=== PATIENT | male | born 1955 | race Caucasian/White ===

== ENCOUNTER 2017-04-27 10:04 | Emergency (ER) | payer OTHER ==
[~2017-04-27 10:04] MED LIST: ASPEC81 PO; ATOR-22 PO; CLOP1TAB5 PO; LEVO25TA PO; LOSA50TA6 PO
[2017-04-27 10:09] VITALS: TEMP 37.4; Ht 177.8 cm
[2017-04-27] MEDS ORDERED: SODIUM CHLORIDE 0.9% 1000ML 1,000 ML IV STA (10:19)
[2017-04-27 10:23] VITALS: O2SAT 93
[2017-04-27] MEDS ORDERED: MoRPHine SULFATE 10 MG/ML CARP/VIAL IV STA (10:24)
[2017-04-27] MEDS ORDERED: ONDANSETRON INJ 2 MG/ML 2 ML VIAL IV STA (10:24)
[2017-04-27] MEDS ORDERED: ALBUTEROL 0.083% NEBU SOLN 3 ML VIAL INH STA ×3 (10:25)
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
[2017-04-27 10:41] LABS: BASO % 0.1 %; BASO ABS # 0.01 K/uL (0-0.2); EOS % 0.1 %; EOS ABS # 0.01 K/uL (0-0.5); HEMATOCRIT 44.3 % (42-52); HEMOGLOBIN 16.1 g/dL (14.0-18.0); IG# 0.03 K/uL (0.00-0.02); LYMPH % 9.4 %; LYMPH ABS # 0.84 K/uL (1.2-3.4); MEAN CELL VOLUME 85.5 fL (80-100); MEAN CORPUSCULAR HEMOGLOBIN 31.1 pg (25-34); MEAN CORPUSCULAR HGB CONC 36.3 g/dl (32-36); MEAN PLATELET VOLUME 9.7 fL (7.4-10.4); MONO % 9.8 %; MONO ABS # 0.88 K/uL (0.11-0.59); NEUT % 80.3 %; NEUT ABS # 7.19 K/uL (1.4-6.5); PLATELET COUNT 239 K/uL (130-400); RED CELL DISTRIBUTION WIDTH CV 13.1 % (11.5-14.5); RED CELL DISTRIBUTION WIDTH SD 41.1 fL (36.4-46.3); WHITE BLOOD COUNT 8.96 K/uL (4.8-10.8)
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
[2017-04-27 10:58] LABS: ALBUMIN 3.5 gm/dl (3.4-5.0); ALT/SGPT 38 U/L (12-78); BLOOD UREA NITROGEN 17 mg/dl (7-18); CARBON DIOXIDE 23 mmol/L (21-32); CREATININE 1.16 mg/dl (0.60-1.40); GLUCOSE 117 mg/dl (70-99); LIPASE 117 U/L (73-393); POTASSIUM 3.8 mmol/L (3.5-5.1); SODIUM 131 mmol/L (136-145)
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
[2017-04-27 11:04] LABS: ALKALINE PHOSPHATASE 81 U/L (45-117); AST/SGOT 41 U/L (15-37); CKMB 9.9 ng/ml (0.5-3.6); TOTAL PROTEIN 7.6 gm/dl (6.4-8.2)
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
[2017-04-27] MEDS ORDERED: ATOR-24 PO (11:18)
[2017-04-27] MEDS ORDERED: ASPI81TA28 PO (11:18)
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
[2017-04-27 11:26] LABS: ISTAT CREATININE 0.9 mg/dl (0.6-1.3); ISTAT IONIZED CALCIUM 1.18 mmol/l (1.12-1.32); ISTAT POTASSIUM 3.9 mEq/L (3.3-5.0)
[2017-04-27] MEDS ORDERED: ALBUTEROL HFA 8 GM INHALER INH STA (11:41)
[2017-04-27] MEDS ORDERED: HYDROmorphone INJ 1 MG/ML SYR IV STA (11:41)
[2017-04-27] MEDS ORDERED: OXYC1TAB3 PO (11:46)
[2017-04-27 12:31] VITALS: BP 169/67; PULSE 98; O2SAT 95
== END 2017-04-27 12:34 | disposition home or self-care (01) ==
LOC: C.EDB 10:05 → C.EDA 12:34
DX: R07.9 Chest pain, unspecified (principal); M25.561 Pain in right knee; V48.5XXA Car driver injured in noncollision transport accident in traffic accident, initial encounter; Y92.488 Other paved roadways as the place of occurrence of the external cause; N28.1 Cyst of kidney, acquired; I25.10 Atherosclerotic heart disease of native coronary artery without angina pectoris; E78.5 Hyperlipidemia, unspecified; I10 Essential (primary) hypertension; E03.9 Hypothyroidism, unspecified; F17.200 Nicotine dependence, unspecified, uncomplicated; Z95.5 Presence of coronary angioplasty implant and graft; Z79.01 Long term (current) use of anticoagulants; Z79.82 Long term (current) use of aspirin; Z88.8 Allergy status to other drugs, medicaments and biological substances

== ENCOUNTER 2017-05-12 18:04 | Observation (INO) | payer OTHER ==
[~2017-05-12] VITALS: Ht 180.3 cm; Wt 81.1 kg
[~2017-05-12 18:04] MED LIST changes: -ASPEC81 PO; +ASPI81TA28 PO; -ATOR-22 PO; +ATOR-24 PO; +OXYC1TAB3 PO
[2017-05-12] MEDS ORDERED: NITROGLYCERIN 0.4 MG SL PER TAB CHARGE SL STA (18:18)
[2017-05-12] MEDS ORDERED: MoRPHine SULFATE 4 MG/ML 1 ML CARP\\VIAL IV STA (18:18)
[2017-05-12] MEDS ORDERED: ASPIRIN 324 MG CHEW PO STA (18:18)
[2017-05-12] MEDS ORDERED: LOSARTAN POTASSIUM 50 MG TAB PO STA (18:19)
--- NOTE | 2017-05-12 18:31 | DIAGNOSTIC IMAGING REPORT ---
CHEST ONE VIEW PORTABLE CLINICAL HISTORY: 62 years-old Male presenting with CHEST PAIN. TECHNIQUE: Portable upright AP view of the chest was obtained. COMPARISON: 04/27/2017. FINDINGS: Atherosclerosis of aortic arch. Cardiac silhouette mildly enlarged. Lungs mildly hyperinflated. No focal opacity. No large effusion or pneumothorax. Osseous structures normal. Upper abdomen normal. IMPRESSION: 1. No acute cardiopulmonary disease. Electronically signed by: Riley Ko M.D. 05/12/2017 6:30 PM Dictated Date/Time: 05/12/2017 6:29 PM
[2017-05-12] MEDS ORDERED: ONDANSETRON INJ 2 MG/ML 2 ML VIAL IV STA (18:35)
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
[2017-05-12 18:43] LABS: PTT PATIENT 27.3 SECONDS (21.0-31.0)
[2017-05-12 18:56] LABS: ALBUMIN 3.5 gm/dl (3.4-5.0); ALT/SGPT 50 U/L (12-78); AST/SGOT 24 U/L (15-37); BLOOD UREA NITROGEN 20 mg/dl (7-18); CARBON DIOXIDE 18 mmol/L (21-32); CREATININE 1.05 mg/dl (0.60-1.40); GLUCOSE 108 mg/dl (70-99); LIPASE 142 U/L (73-393); POTASSIUM 3.8 mmol/L (3.5-5.1); SODIUM 129 mmol/L (136-145)
[2017-05-12 19:01] LABS: ALKALINE PHOSPHATASE 111 U/L (45-117)
[2017-05-12 19:34] LABS: HEMATOCRIT 45.6 % (42-52); HEMOGLOBIN 16.6 g/dL (14.0-18.0); MEAN CELL VOLUME 85.1 fL (80-100); MEAN CORPUSCULAR HGB CONC 36.4 g/dl (32-36); MEAN PLATELET VOLUME 9.5 fL (7.4-10.4); PLATELET COUNT 399 K/uL (130-400); RED CELL DISTRIBUTION WIDTH CV 12.9 % (11.5-14.5); RED CELL DISTRIBUTION WIDTH SD 39.8 fL (36.4-46.3); WHITE BLOOD COUNT 10.51 K/uL (4.8-10.8)
[2017-05-12] MEDS ORDERED: ISOSORBIDE MONONITRATE 30 MG TABCR PO ONE (19:45)
[2017-05-12] MEDS ORDERED: BENZONATATE 100MG CAP PO ONE (20:29)
[2017-05-12] MEDS ORDERED: LORAZEPAM 2 MG/ML 1 ML VIAL IV ONE (20:29)
[2017-05-12] MEDS ORDERED: LORAZEPAM 2 MG/ML 1 ML VIAL IV PRN (20:30)
[2017-05-12] MEDS ORDERED: BENZONATATE 100MG CAP PO PRN (20:30)
[2017-05-12] MEDS ORDERED: TRAMADOL HCL 50 MG TAB PO PRN (20:45)
[2017-05-12] MEDS ORDERED: PROCHLORPERAZINE INJ 5 MG in SYRINGE 4 ML IV PRN (20:45)
[2017-05-12] MEDS ORDERED: OPTIRAY 320 IV PRN (20:45)
[2017-05-12] MEDS ORDERED: HYDROmorphone INJ 0.5 MG/0.5 ML SYR IV PRN (20:45)
[2017-05-12 21:16] LABS: INFLUENZA B ANTIGEN Neg for Influ B (NEG)
--- NOTE | 2017-05-12 21:24 | DIAGNOSTIC IMAGING REPORT ---
HEAD WITHOUT CONTRAST (CT) CLINICAL HISTORY: 62 years-old Male presenting with bah, falls. TECHNIQUE: Multidetector CT imaging of the head was performed without the use of intravenous contrast. IV contrast: None. A dose lowering technique was used consistent with the principles of ALARA (as low as reasonably achievable). COMPARISON: 04/27/2017. CT DOSE (mGy.cm): The estimated cumulative dose is 2840.[address] scans. FINDINGS: Research And Development Scientist topogram: Unremarkable. Ventricles and sulci normal in size. Brain parenchyma normal in appearance with preserved ibrahim-white differentiation. No mass effect or midline shift. No hemorrhage or acute territorial infarct. No extra-axial fluid collection. Layering fluid in aerated secretions in the left maxillary sinus. Calvarium intact. IMPRESSION: 1. No acute intracranial abnormality. 2. Layering fluid and aerated secretions in the left maxillary sinus could indicate acute sinusitis. Correlate clinically. Electronically signed by: Riley Ko M.D. 05/12/2017 9:18 PM Dictated Date/Time: 05/12/2017 9:14 PM
--- NOTE | 2017-05-12 21:29 | DIAGNOSTIC IMAGING REPORT ---
NECK ANGIO WITH CONTRAST CLINICAL HISTORY: 62 years-old Male presenting with neck pain. TECHNIQUE: Multidetector CT angiography of the neck was performed after the administration of intravenous contrast. 3-D volumetric and/or maximum intensity projection (MIP) images were subsequently reconstructed for review. IV contrast: 120 mL of Optiray 320. A dose lowering technique was used consistent with the principles of ALARA (as low as reasonably achievable). Stenosis measurements were based on NASCET-like criteria. COMPARISON: None. CT DOSE (mGy.cm): The estimated cumulative dose is 2848.85. FINDINGS: Geothermal Operating Engineer topogram: Unremarkable. Atherosclerosis of the three-vessel aortic arch with patent origins of the cervical vessels. Bilateral common carotid arteries patent. Atherosclerosis of the carotid bulbs. Focal dissection flap evident in the proximal left internal carotid artery which extends for a length of approximately 1.5 cm (series 10 image 87). The acuity of this is difficult to establish, however, no surrounding inflammatory changes evident. The remainder of the left internal carotid artery is patent. The right internal carotid artery is patent throughout. Atherosclerotic plaque at the carotid bulbs does not significantly narrow the origins of the ICAs. Origins and courses of the vertebral arteries patent. Codominant vertebral arteries. Layering fluid in the left maxillary sinus. Mild degenerative change of the cervical spine. 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 The acuity of this abnormality is difficult to establish. Electronically signed by: Riely Ko M.D. 05/12/2017 9:28 PM Dictated Date/Time: 05/12/2017 9:24 PM
--- NOTE | 2017-05-12 21:34 | DIAGNOSTIC IMAGING REPORT ---
CHEST COMBO ANGIO DISSECTION CLINICAL HISTORY: 62 years-old Male presenting with ^cp/back pain. TECHNIQUE: Multidetector CT angiography of the chest was performed before and after the administration of intravenous contrast. 3-D volumetric and/or maximum intensity projection (MIP) images were subsequently reconstructed for review. IV contrast: 120 mL of Optiray 320. A dose lowering technique was used consistent with the principles of ALARA (as low as reasonably achievable). COMPARISON: Chest CT from 04/27/2017. CT DOSE (mGy.cm): The estimated cumulative dose is 2848.85 mGy.cm. FINDINGS: Generation Engineer topogram: Unremarkable. Vasculature: The study is adequate for assessment of the aorta. Precontrast imaging demonstrates no evidence of intramural hematoma. Atherosclerosis of the aorta. Postcontrast imaging demonstrates no evidence of dissection, penetrating ulcer, or aneurysm. Allowing for timing of the contrast bolus, no gross evidence of a filling defect within the pulmonary arteries to suggest embolus. Main pulmonary artery is not enlarged. No flattening of the interventricular septum. No intracardiac filling defect. No reflux of contrast into the hepatic veins. Remaining chest: On soft tissue windows, bilateral gynecomastia. Normal thyroid. No axillary, supraclavicular, hilar, or mediastinal lymphadenopathy. Normal heart size. Coronary artery calcification. No pericardial or pleural effusion. Well-defined hypodensity in the left hepatic lobe likely hepatic cyst. Focal arterial hyperenhancement in the right hepatic lobe likely flash filling hemangioma. On lung windows, no focal infiltrate or nodule. Airways patent. On bone windows, normal osseous structures. IMPRESSION: 1. No evidence of acute aortic injury. No acute intrathoracic pathology. 2. Atherosclerosis. Electronically signed by: Riley Ko M.D. 05/12/2017 9:33 PM Dictated Date/Time: 05/12/2017 9:28 PM
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
--- NOTE | 2017-05-12 21:49 | DIAGNOSTIC IMAGING REPORT ---
ANGIO ABD/PELVIS WITH CONTRAST CLINICAL HISTORY: 62 years-old Male presenting with chest and back pain. TECHNIQUE: Multidetector CT angiography of the abdomen and pelvis was performed after the administration of intravenous contrast. 3-D volumetric and/or maximum intensity projection (MIP) images were subsequently reconstructed for review. IV contrast: 120 mL of Optiray 320. A dose lowering technique was used consistent with the principles of ALARA (as low as reasonably achievable). Stenosis measurements were based on NASCET-like criteria. COMPARISON: 04/27/2017. CT DOSE (mGy.cm): The estimated cumulative dose is 2848.85. FINDINGS: Punching Machine Operator topogram: Unremarkable. Vasculature: Atherosclerosis of the abdominal aorta. Origins of the celiac, superior mesenteric, bilateral single renal, and inferior mesenteric arteries patent. Bilateral common iliac arteries demonstrate extensive atherosclerotic plaque without significant luminal narrowing. Plaque also noted in the bilateral internal iliac arteries with less than 50% narrowing of the left internal iliac artery near the origin. Bilateral common and superficial femoral arteries widely patent. No evidence of aneurysm, focal vessel occlusion, or significant stenosis. Remaining abdomen and pelvis: Lung bases: Lungs and pleural spaces clear. Normal heart size. No pericardial or pleural effusion. Liver: Normal morphology. Well-defined hypodense lesion in the left hepatic lobe likely hepatic cyst. Vague hyperenhancing lesion in the inferior right hepatic lobe likely flash filling hemangioma. Patent hepatic vasculature. Replaced right hepatic artery arising from the SMA. Biliary: No intrahepatic or extrahepatic biliary ductal dilatation. Normal gallbladder. Pancreas: Normal. Spleen: Normal. Adrenal glands: Normal. Kidneys and ureters: Redemonstration of the heterogeneously enhancing solid 1.9 cm mass at the posterior aspect of the interpolar region the right kidney (series 12 image 191). No nephrolithiasis. No hydronephrosis. Ureters normal. Bladder: Normal. Pelvic organs: Prostate and seminal vesicles normal. Bowel: Diverticulosis of the sigmoid and descending colon. No bowel obstruction. Small hilar hernia. Peritoneal cavity: No free fluid or intraperitoneal gas. Lymph nodes: No enlarged lymph nodes in the abdomen or pelvis. Abdominal wall: Small fat-containing umbilical hernia. Musculoskeletal: Normal. IMPRESSION: 1. Extensive atherosclerosis without evidence of aneurysm, focal vessel occlusion, or significant stenosis.. 2. 1.9 cm heterogeneously enhancing solid right renal mass, highly suspicious for renal cell carcinoma. Urologic consultation is necessary. 3. Diverticulosis. The report will be called/faxed according to standard departmental protocol. Electronically signed by: Riley Ko M.D. 05/12/2017 9:48 PM Dictated Date/Time: 05/12/2017 9:40 PM
[2017-05-12] MEDS ORDERED: DOXYCYCLINE HYCLATE 100 MG CAP PO ONE (21:57)
[2017-05-12] MEDS ORDERED: POTASSIUM CHLORIDE 10 MEQ TABCR PO STA (21:57)
[2017-05-12] MEDS ORDERED: GUAIFENESIN 600 MG TABCR PO ONE (21:57)
[2017-05-12] MEDS ORDERED: CLOPIDOGREL BISULFATE 75 MG TAB PO ONE (21:59)
[2017-05-12] MEDS ORDERED: ATORVASTATIN 40 MG TAB PO ONE (21:59)
[2017-05-12] MEDS ORDERED: ACETAMINOPHEN 325 MG TAB PO PRN (22:00)
[2017-05-12] MEDS ORDERED: ALBUT/IPRATROP 3MG/0.5MG NEB 3 ML VIAL INH PRN (22:00)
[2017-05-12] MEDS ORDERED: NITROGLYCERIN 0.4 MG SL PER TAB CHARGE SL PRN (22:00)
[2017-05-12] MEDS ORDERED: HYDROmorphone INJ 0.5 MG/0.5 ML SYR IV ONE (22:27)
[2017-05-12] MEDS ORDERED: IV FLUIDS COMPLETED PRN (23:15)
[2017-05-12 23:30] VITALS: BP 122/72; PULSE 67; TEMP 36.6; O2SAT 94
[2017-05-12] MEDS ORDERED: MAGNESIUM SULFATE 1GM / D5W 1 GM in PREMIXED IN D5W 100 ML IV ONE (23:30)
[2017-05-12] MEDS ORDERED: NSS + 20MEQ KCL 1000ML 1,000 ML IV ONE (23:30)
[2017-05-12] MEDS: OXYCODONE/ACETAMINOPHEN 5-325 TAB PO PRN (23:54)
[2017-05-12 23:55] LABS: INFLUENZA A PCR Neg for Influ A (NEG); INFLUENZA B PCR Neg for Influ B (NEG)
[2017-05-13] VITALS (9 sets, daily range): BP systolic 119–170; BP diastolic 47–86; PULSE 52–67; TEMP 36.5–36.8; O2SAT 93–95; Ht 180.3 cm; Wt 81.1 kg
[2017-05-13] MEDS: LORAZEPAM INJ 0.5 MG in SYRINGE 0.75 ML IV PRN ×2 (03:38→23:31)
[2017-05-13] MEDS: LEVOTHYROXINE 25 MCG TAB PO SCH (05:53)
[2017-05-13] MEDS: ENOXAPARIN 40 MG/0.4 ML SYR SC SCH (05:54)
[2017-05-13 07:03] LABS: PTT PATIENT 26.5 SECONDS (21.0-31.0)
[2017-05-13 07:09] LABS: BASO % 0.3 %; BASO ABS # 0.03 K/uL (0-0.2); EOS % 1.9 %; HEMATOCRIT 38.4 % (42-52); HEMOGLOBIN 13.8 g/dL (14.0-18.0); IG# 0.02 K/uL (0.00-0.02); LYMPH % 29.5 %; LYMPH ABS # 3.09 K/uL (1.2-3.4); MEAN CELL VOLUME 85.9 fL (80-100); MEAN CORPUSCULAR HEMOGLOBIN 30.9 pg (25-34); MEAN CORPUSCULAR HGB CONC 35.9 g/dl (32-36); MEAN PLATELET VOLUME 9.2 fL (7.4-10.4); MONO % 9.2 %; MONO ABS # 0.96 K/uL (0.11-0.59); NEUT % 58.9 %; NEUT ABS # 6.16 K/uL (1.4-6.5); PLATELET COUNT 349 K/uL (130-400); RED CELL DISTRIBUTION WIDTH SD 40.8 fL (36.4-46.3); WHITE BLOOD COUNT 10.46 K/uL (4.8-10.8)
[2017-05-13 07:28] LABS: BLOOD UREA NITROGEN 21 mg/dl (7-18); CALCIUM 8.5 mg/dl (8.5-10.1); CARBON DIOXIDE 26 mmol/L (21-32); CREATININE 1.08 mg/dl (0.60-1.40); GLUCOSE 93 mg/dl (70-99); POTASSIUM 4.2 mmol/L (3.5-5.1); SODIUM 132 mmol/L (136-145)
[2017-05-13] MEDS: ASPIRIN 81 MG ECTAB PO SCH (08:25)
[2017-05-13] MEDS: NICOTINE 14 MG/24 HR TDSY TD SCH (08:26)
[2017-05-13] MEDS: GUAIFENESIN 600 MG TABCR PO SCH ×2 (08:26→20:10)
[2017-05-13] MEDS: DOXYCYCLINE HYCLATE 100 MG CAP PO SCH ×2 (08:26→20:09)
[2017-05-13] MEDS: OXYCODONE/ACETAMINOPHEN 5-325 TAB PO PRN ×3 (08:32→20:12)
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
--- NOTE | 2017-05-13 16:51 | ECHOCARDIOGRAM REPORT ---
*NOTICE TO RECEIVING REPUBLICAN AGENCY This information is strictly Confidential and protected under [place] law. [place] law prohibits you from making any further disclosure of this information unless further disclosure is expressly permitted by the written consent of the person to whom it pertains or is authorized by law. A general authorization for the release of medical or other information is not sufficient for this purpose. Hospital accepts no responsibility if the information is made available to any other person, INCLUDING THE PATIENT. Interpretation Summary * Name: VIRGINIE ALDRICH Study Date: 05/13/2017 10:48 AM BP: 119/47 mmHg * Patient Location: [facility]\S\N276\S\1 HR: 52 * : 1955 (M/d/yyyy) Gender: Male Height: 70 in * Age: 62 yrs Ethnicity: [place] Weight: 180 lb * Ordering Physician: Francisco Cruz * Referring Physician: Self, Referred * Performed By: Yojana Rollins RDCS * * Reason For Study: Chest Pain * BSA: 2.0 m2 * -- Conclusions -- * The left ventricle is normal in size. * There is moderate concentric left ventricular hypertrophy. * Ejection Fraction = 60-65%. * The left ventricular wall motion is normal. * The right ventricular systolic function is normal. * The left atrial size is normal. * Right atrial size is normal. * There is mild mitral regurgitation. Procedure Details * A complete two-dimensional transthoracic echocardiogram was performed (2D, M-mode, Doppler and color flow Doppler). Left Ventricle * The left ventricle is normal in size. * There is moderate concentric left ventricular hypertrophy. * Ejection Fraction = 60-65%. * Left ventricular systolic function is normal. * The left ventricular wall motion is normal. Right Ventricle * The right ventricle is normal size. * The right ventricular systolic function is normal. Atria * The left atrial size is normal. * Right atrial size is normal. * No ASD detected; PFO is not assessed. Mitral Valve * The mitral valve leaflets appear thickened, but open well. * There is mild mitral regurgitation. Tricuspid Valve * The tricuspid valve anatomy is normal. * Significant tricuspid regurgitation is absent. Aortic Valve * The aortic valve is tricuspid. The leaflet thickness if normal. There is no aortic stenosis, and no significant insufficiency. * Aortic stenosis is absent. * There is no significant aortic regurgitation. Pulmonic Valve * The pulmonic valve is not well visualized. * There is no pulmonic valvular regurgitation. MMode 2D Measurements and Calculations IVSd 1.1 cm IVSs 1.6 cm LVIDd 5.2 cm LVIDs 2.8 cm LVPWd 1.3 cm LVPWs 2.0 cm IVS/LVPW 0.91 FS 46.0 % EDV(Teich) 127.5 ml ESV(Teich) 29.3 ml EF(Teich) 77.0 % EDV(cubed) 137.8 ml ESV(cubed) 21.8 ml EF(cubed) 84.2 % % IVS thick 37.3 % % LVPW thick 54.3 % LV mass(C)d 248.1 grams LV mass(C)dI 124.3 grams/m\S\2 LV mass(C)s 192.6 grams LV mass(C)sI 96.5 grams/m\S\2 SV(Teich) 98.2 ml SI(Teich) 49.2 ml/m\S\2 SV(cubed) 116.0 ml SI(cubed) 58.1 ml/m\S\2 Ao root diam 3.4 cm Ao root area 9.2 cm\S\2 ACS 2.4 cm LA dimension 3.6 cm LA/Ao 1.1 LVAd ap4 29.3 cm\S\2 LVLd ap4 7.5 cm EDV(MOD-sp4) 95.5 ml EDV(sp4-el) 96.9 ml LVAs ap4 15.0 cm\S\2 LVLs ap4 6.3 cm ESV(MOD-sp4) 30.0 ml ESV(sp4-el) 30.5 ml EF(MOD-sp4) 68.6 % EF(sp4-el) 68.5 % LVAd ap2 33.5 cm\S\2 LVLd ap2 8.6 cm EDV(MOD-sp2) 117.3 ml EDV(sp2-el) 111.4 ml LVAs ap2 18.1 cm\S\2 LVLs ap2 6.7 cm ESV(MOD-sp2) 41.5 ml ESV(sp2-el) 41.6 ml EF(MOD-sp2) 64.6 % EF(sp2-el) 62.6 % LVLd %diff 12.0 % EDV(MOD-bp) 112.6 ml LVLs %diff 6.7 % ESV(MOD-bp) 36.7 ml EF(MOD-bp) 67.4 % SV(MOD-sp4) 65.5 ml SI(MOD-sp4) 32.8 ml/m\S\2 SV(MOD-sp2) 75.8 ml SI(MOD-sp2) 38.0 ml/m\S\2 SV(MOD-bp) 75.9 ml SI(MOD-bp) 38.0 ml/m\S\2 SV(sp4-el) 66.4 ml SI(sp4-el) 33.3 ml/m\S\2 SV(sp2-el) 69.8 ml SI(sp2-el) 35.0 ml/m\S\2 Doppler Measurements and Calculations MV E max kita 46.2 cm/sec MV A max kita 58.7 cm/sec MV E/A 0.79 MV dec time 0.41 sec Ao V2 max 122.0 cm/sec Ao max PG 6.0 mmHg Ao max PG (full) 1.1 mmHg LV V1 max PG 4.8 mmHg LV V1 max 110.0 cm/sec PA V2 max 88.1 cm/sec PA max PG 3.1 mmHg TR max kita 155.3 cm/sec
[2017-05-13] MEDS: CLOPIDOGREL BISULFATE 75 MG TAB PO SCH (20:09)
[2017-05-13] MEDS: ATORVASTATIN 40 MG TAB PO SCH (20:09)
[2017-05-14] VITALS (14 sets, daily range): BP systolic 117–197; BP diastolic 65–102; PULSE 52–94; TEMP 36.5–36.9; O2SAT 93–97
[2017-05-14] MEDS ORDERED: LOSARTAN POTASSIUM 50 MG TAB PO ONE (00:07)
[2017-05-14] MEDS: ENOXAPARIN 40 MG/0.4 ML SYR SC SCH (06:22)
[2017-05-14] MEDS: LEVOTHYROXINE 25 MCG TAB PO SCH (06:22)
[2017-05-14] MEDS: OXYCODONE/ACETAMINOPHEN 5-325 TAB PO PRN ×2 (06:34→13:29)
[2017-05-14] MEDS: ASPIRIN 81 MG ECTAB PO SCH (08:29)
[2017-05-14] MEDS: GUAIFENESIN 600 MG TABCR PO SCH ×2 (08:29→20:59)
[2017-05-14] MEDS: DOXYCYCLINE HYCLATE 100 MG CAP PO SCH ×2 (08:30→20:59)
[2017-05-14] MEDS: NICOTINE 14 MG/24 HR TDSY TD SCH (08:30)
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
[2017-05-14] MEDS ORDERED: BACLOFEN 10 MG TAB PO ONE (17:12)
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
[2017-05-14] MEDS ORDERED: HydrALAZINE HCL 20 MG/ML VIAL IV. PRN (18:00)
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
[2017-05-14] MEDS ORDERED: LORAZEPAM 0.5 MG TAB PO ONE (20:15)
[2017-05-14] MEDS: BACLOFEN 10 MG TAB PO SCH (20:56)
[2017-05-14] MEDS: CLOPIDOGREL BISULFATE 75 MG TAB PO SCH (20:59)
[2017-05-14] MEDS: ATORVASTATIN 40 MG TAB PO SCH (20:59)
[2017-05-15] MEDS: LEVOTHYROXINE 25 MCG TAB PO SCH (04:11)
[2017-05-15] MEDS: ENOXAPARIN 40 MG/0.4 ML SYR SC SCH (04:11)
[2017-05-15] MEDS: OXYCODONE/ACETAMINOPHEN 5-325 TAB PO PRN (04:12)
[2017-05-15 04:18] VITALS: BP 144/66; PULSE 57; TEMP 36.9; O2SAT 95
[2017-05-15 07:45] VITALS: BP 162/80; PULSE 59; TEMP 36.8; O2SAT 97
[2017-05-15 08:00] VITALS: O2SAT 97
[2017-05-15] MEDS: GUAIFENESIN 600 MG TABCR PO SCH (08:42)
[2017-05-15] MEDS: BACLOFEN 10 MG TAB PO SCH (08:42)
[2017-05-15] MEDS: ASPIRIN 81 MG ECTAB PO SCH (08:42)
[2017-05-15] MEDS: NICOTINE 14 MG/24 HR TDSY TD SCH (08:43)
[2017-05-15] MEDS: DOXYCYCLINE HYCLATE 100 MG CAP PO SCH (08:43)
[2017-05-15] MEDS ORDERED: LOSARTAN POTASSIUM 50 MG TAB PO SCH ×2 (09:00)
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
[2017-05-15] MEDS ORDERED: DXY100 PO (10:06)
[2017-05-15] MEDS ORDERED: BENZ100C18 PO (10:06)
[2017-05-15] MEDS ORDERED: LRS10 PO (10:06)
--- NOTE | 2017-05-15 10:12 | Discharge Instructions ---
Discharge Instructions Date of Service May 15, 2017. Admission Reason for Admission: Chest Pain Discharge Discharge Diagnosis / Problem: Atypical chest pain, Bronchitis Discharge Goals Goal(s): Decrease discomfort, Improve function, Improve disease control Activity Recommendations Activity Limitations: resume your previous activity (as tolerated) . Instructions / Follow-Up Instructions / Follow-Up Follow up with your primary care provider Dr. Foster on Mach 12 @ 10:45 am Complete the course of doxycycline Take Baclofen as needed for muscles spasm Baclofen major side effects are dizziness, stomach upset, urinary retention Seek medical attention if chest pain worsening Current Hospital Diet Patient's current hospital diet: AHA Diet (Heart Healthy) Discharge Diet Recommended Diet: AHA Diet (Heart Healthy) Pending Studies Studies pending at discharge: no Medical Emergencies . Who to Call and When: Medical Emergencies: If at any time you feel your situation is an emergency, please call 911 immediately. . Non-Emergent Contact Non-Emergency issues call your: Primary Care Provider Call Non-Emergent contact if: your pain is worsening, you have any medication questions . . "Provider Documentation" section prepared by Francisco Cruz. .
[2017-05-15 10:14] VITALS: BP 162/80; PULSE 59; TEMP 36.8; O2SAT 97
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
== END 2017-05-15 11:08 | disposition home or self-care (01) ==
LOC: EDBD 18:04 → C.EDB 18:05 → C.MED 21:57 → ENRESERV 22:08
PROVIDERS: ADMIT Internal Medicine; ATTEND Internal Medicine
DX: R07.89 Other chest pain (principal); J40 Bronchitis, not specified as acute or chronic; I11.9 Hypertensive heart disease without heart failure; I16.0 Hypertensive urgency; E03.9 Hypothyroidism, unspecified; I25.10 Atherosclerotic heart disease of native coronary artery without angina pectoris; I65.29 Occlusion and stenosis of unspecified carotid artery; E78.5 Hyperlipidemia, unspecified; E78.00 Pure hypercholesterolemia, unspecified; F17.200 Nicotine dependence, unspecified, uncomplicated; M79.1 Myalgia; Z79.82 Long term (current) use of aspirin; Z82.49 Family history of ischemic heart disease and other diseases of the circulatory system

== ENCOUNTER 2018-10-17 11:25 | Inpatient (IN) ==
[2018-10-17] MEDS ORDERED: cefTRIAXone SODIUM 1,000 MG in DEXTROSE 5% 50 ML IV STA (11:30)
--- NOTE | 2018-10-17 11:43 | XRay Report ---
XR chest 1V portable HISTORY: 63 years-old Male Chest Pain acute atypical chest pain COMPARISON: Chest radiograph 09/25/2018 TECHNIQUE: Portable AP view of the chest FINDINGS: Cardiomediastinal and hilar silhouettes are unchanged. No pneumothorax, pleural effusion, focal airsp gabriel consolidation or overt pulmonary edema. Bones of the chest appear grossly intact. IMPRESSION: No acute process. The above report was generated using voice recognition software. It may contain grammatical, syntax o r spelling errors. Electronically signed by: Umair Alexander M.D. 10/17/2018 11:42 AM
[2018-10-17 12:13] LABS: Basophils # (auto) 0.02 K/uL (0-0.2); Basophils % (auto) 0.3 %; Eosinophils # (auto) 0.09 K/uL (0-0.5); Eosinophils % (auto) 1.2 %; Hematocrit (blood only) 42.9 % (42-52); Hemoglobin 15.7 g/dL (14.0-18.0); Immature Granulocytes # (auto) 0.01 K/uL (0.00-0.02); Immature Granulocytes % (auto) 0.1 %; Lymphocytes # (auto) 2.64 K/uL (1.2-3.4); Lymphocytes % (auto) 35.6 %; Mean Corpuscular Hgb Conc 36.6 g/dL (32-36); Mean Corpuscular Volume 84.4 fL (80-100); Mean Platelet Volume 9.3 fL (7.4-10.4); Monocytes % (auto) 10.8 %; Neutrophils # (auto) 3.85 K/uL (1.4-6.5); Platelet Count 234 K/uL (130-400); RDW Coefficient of Variation 13.5 % (11.5-14.5); RDW Standard Deviation 41.7 fL (36.4-46.3); Red Blood Count 5.08 M/uL (4.7-6.1); White Blood Count 7.41 K/uL (4.8-10.8)
[2018-10-17 12:26] LABS: Partial Thromboplastin Ratio 1.1; Partial Thromboplastin Time 29.5 Seconds (21.0-31.0); Prothrombin Time 10.4 Seconds (9.0-12.0)
[2018-10-17 12:31] LABS: Alanine Aminotransferase 41 U/L (12-78); Albumin Level 3.4 gm/dl (3.4-5.0); Aspartate Aminotransferase 27 U/L (15-37); BUN Creatinine Ratio 13.8 (10-20); Blood Urea Nitrogen 13 mg/dl (7-18); Calcium 8.6 mg/dl (8.5-10.1); Carbon Dioxide 27 mmol/L (21-32); Chloride 100 mmol/L (98-107); Est GFR (African American) 98.9; Est GFR (Non-African American) 85.3; Glucose 95 mg/dl (70-99); Potassium 4.1 mmol/L (3.5-5.1); Sodium 132 mmol/L (136-145)
[2018-10-17 12:36] LABS: Albumin Globulin Ratio 0.9 (0.9-2); Alkaline Phosphatase 96 U/L (45-117); Bilirubin,Total 0.5 mg/dl (0.2-1); Creatine Kinase 145 U/L (39-308); Creatine Kinase MB 1.8 ng/ml (0.5-3.6); Globulin 3.8 gm/dl (2.5-4.0); Total Protein 7.2 gm/dl (6.4-8.2); Troponin I < 0.015 ng/ml (0-0.045)
--- NOTE | 2018-10-17 14:14 | Emergency Department Note ---
Entered by Ceciila Batista acting as a scribe for History of Present Illness General Chief complaint: Headache Stated complaint: HEADACHES, DIZZYNESS, SKIN STINGING Time Seen by Provider: 10/17/18 11:30 Source: patient and other (Dr. Russo) History of Present Illness Onset (ago): day(s) 1 Location: head and chest Pain Consistency: + other (worsening) Maximum Pain Intensity: 6 Quality: + other (dizziness; shortness of breath) Associated symptoms: + chest pain (pressure), + cough (dry), + diaphoresis, + shortness of breath and + other (positive stinging in arms) Treatments prior to arrival: other (Doxycycline) The patient is a 63 year old male who presents to the Emergency Room with complaints of worsening dizziness and shortness of breath that began yesterday. The patient states that he was seen in Dr. Russo's office for a routine follow up when he was sent to the ED for chest pressure and shortness of breath. The patient reports that he has been short of breath, dizzy, and sweating since yesterday. He reports a dry cough, and states that he had stinging in his arms today at Dr. Russo's office. The patient states that he was seen in the ED about 3 weeks ago and diagnosed with Lyme after a bite on his leg. He reports that he was given Doxycyline and states that he has been on this since this time. Dr. Russo states that the patient's ECG today showed some lateral T- wave inversions that are new. Home Medications Home Medications Medication Instructions Recorded Confirmed Type aspirin 81 mg PO QAM 10/17/18 10/17/18 History atorvastatin 40 mg PO QAM 10/17/18 10/17/18 History baclofen 5 mg PO QAM 10/17/18 10/17/18 History doxycycline hyclate 100 mg PO QAM 10/17/18 10/17/18 History levothyroxine 25 mcg PO QAM 10/17/18 10/17/18 History losartan 50 mg PO QAM 10/17/18 10/17/18 History Allergies Allergy/AdvReac Type Severity Reaction Status Date / Time atenolol Allergy Mild Verified 04/27/17 11:19 atorvastatin Allergy Mild Verified 01/12/15 14:30 lisinopril Allergy Mild Verified 04/27/17 11:19 Past Med/Surg History Medical History Anxiety (Chronic) Dyslipidemia (Chronic) Hypertension (Chronic) Hyperlipemia (Chronic) Hypertension Family History Other No pertinent family history in first degree relatives Social History Feels Safe at Home: Yes Smoking Status: Current every day smoker Review of Systems See HPI for pertinent positives & negatives. and A total of 10 systems reviewed and were otherwise negative Physical Exam Vital Signs Vital Signs - 24 hr 10/17/18 11:28 10/17/18 11:31 10/17/18 12:05 Temperature 36.9 C Temperature Source Oral Oral Sepsis Recent Fever Within 48 Hours No Sepsis Action Taken by Nursing No Action Required Pulse Rate 58 L Pulse Rate [Left Finger] 72 Respiratory Rate 20 18 Respiratory Effort / Characteristics Non-Labored Spontaneous Respiratory Depth Normal Respiratory Pattern Regular Blood Pressure 173/86 H Blood Pressure [Left Arm] 178/93 H Blood Pressure Mean 115 Blood Pressure Mean [Left Arm] 121 Pulse Oximetry 99 100 Oxygen Delivery Method Room Air 10/17/18 12:06 10/17/18 14:00 Temperature Temperature Source Sepsis Recent Fever Within 48 Hours Sepsis Action Taken by Nursing Pulse Rate Pulse Rate [Left Finger] 54 L Respiratory Rate 16 Respiratory Effort / Characteristics Respiratory Depth Respiratory Pattern Blood Pressure Blood Pressure [Left Arm] 181/87 H Blood Pressure Mean Blood Pressure Mean [Left Arm] 118 Pulse Oximetry 96 Oxygen Delivery Method Room Air CONSTITUTIONAL/VITAL SIGNS: Reviewed / noted above. GENERAL: Non-toxic in appearance. INTEGUMENTARY: Warm, dry, and [place]. HEAD: Normocephalic. EYES: without scleral icterus or trauma. ENT/OROPHARYNX: clear and moist. LYMPHADENOPATHY/NECK: Is supple without lymphadenopathy or meningismus. RESPIRATORY: Lungs clear and equal. CARDIOVASCULAR: Regular rate and rhythm. GI/ABDOMEN: Soft and nontender. No organomegaly or pulsatile mass. No rebound or guarding. Normal bowel sounds. EXTREMITIES: Warm and well perfused. BACK: No CVA tenderness. NEUROLOGICAL: Intact without focal deficits. PSYCHIATRIC: normal affect. MUSCULOSKELETAL: Normally developed with good muscle tone. Course 1157: Past medical records reviewed. The patient was evaluated in room A10. A complete history and physical exam was performed. 1211: I discussed the case with Dr. Chandra-Cardiology who reports that the patient's echo was normal. 1412: I discussed the case with Tammy Chang PA-C who accepts the patient for further evaluation. Administered Medications Discontinued Medications Ceftriaxone Sodium 1,000 mg/ (Dextrose) 60 mls @ 100 mls/hr IV NOW STA; Protocol Stop: 10/17/18 12:05 Last Infusion: 10/17/18 13:03 Dose: 0 mls/hr Documented by: [id number] Admin: 10/17/18 12:24 Dose: 100 mls/hr Documented by: [id number] Medical Decision Making Differential Diagnosis Differential diagnosis: Etiologies such as cardiac ischemia, aortic dissection, pulmonary embolism, pneumonia, pneumothorax, musculoskeletal, infections, pericarditis, myocarditis, esophageal rupture, gastrointestinal, as well as others were entertained. Medical Records Attestation: I reviewed the patient's medical records. Home Medications Current Medication List: was personally reviewed by me Laboratory Data Attestation: I reviewed the patient's lab results. Result diagrams: 10/17/18 12:02 10/17/18 12:02 Lab Results 10/17/18 10/17/18 10/17/18 Range/Units 12:02 12:02 12:02 WBC 7.41 (4.8-10.8) K/uL RBC 5.08 (4.7-6.1) M/uL Hgb 15.7 (14.0-18.0) g/dL Hct 42.9 (42-52) % MCV 84.4 (80-100) fL MCH 30.9 (25-34) pg MCHC 36.6 H (32-36) g/dL RDW Std Deviation 41.7 (36.4-46.3) fL RDW Coeff of Hanh 13.5 (11.5-14.5) % Plt Count 234 (130-400) K/uL MPV 9.3 (7.4-10.4) fL Immature Gran % (Auto) 0.1 % Neut % (Auto) 52.0 % Lymph % (Auto) 35.6 % [place] % (Auto) 10.8 % Eos % (Auto) 1.2 % Baso % (Auto) 0.3 % Immature Gran # (Auto) 0.01 (0.00-0.02) K/uL Neut # (Auto) 3.85 (1.4-6.5) K/uL Lymph # (Auto) 2.64 (1.2-3.4) K/uL [place] # (Auto) 0.80 H (0.11-0.59) K/uL Eos # (Auto) 0.09 (0-0.5) K/uL Baso # (Auto) 0.02 (0-0.2) K/uL PT 10.4 (9.0-12.0) Seconds INR 1.0 (0.9-1.1) APTT 29.5 (21.0-31.0) Seconds PTT Ratio 1.1 Sodium 132 L (136-145) mmol/L Potassium 4.1 (3.5-5.1) mmol/L Chloride 100 (98-107) mmol/L Carbon Dioxide 27 (21-32) mmol/L Anion Gap 5.0 (3-11) BUN 13 (7-18) mg/dl Creatinine 0.94 (0.6-1.4) mg/dl Est Cr Clr Drug Dosing 82.0 ml/min Est GFR ( Amer) 98.9 Est GFR (Non-Af Amer) 85.3 BUN/Creatinine Ratio 13.8 (10-20) Glucose 95 (70-99) mg/dl Calcium 8.6 (8.5-10.1) mg/dl Total Bilirubin 0.5 (0.2-1) mg/dl AST 27 (15-37) U/L ALT 41 (12-78) U/L Alkaline Phosphatase 96 (45-117) U/L Total Creatine Kinase 145 (39-308) U/L CK-MB (CK-2) 1.8 (0.5-3.6) ng/ml CK/CKMB % Calc 1.2 (0-3.0) Troponin I < 0.015 (0-0.045) ng/ml Total Protein 7.2 (6.4-8.2) gm/dl Albumin 3.4 (3.4-5.0) gm/dl Globulin 3.8 (2.5-4.0) gm/dl Albumin/Globulin Ratio 0.9 (0.9-2) Lipase 176 (73-393) U/L Imaging Data Radiologist's Impression: Radiology results as stated below per my review and the radiologist's interpretation: XR chest 1V portable HISTORY: 63 years-old Male Chest Pain acute atypical chest pain COMPARISON: Chest radiograph 09/25/2018 TECHNIQUE: Portable AP view of the chest FINDINGS: Cardiomediastinal and hilar silhouettes are unchanged. No pneumothorax, pleural effusion, focal airspace consolidation or overt pulmonary edema. Bones of the chest appear grossly intact. IMPRESSION: No acute process. The above report was generated using voice recognition software. It may contain grammatical, syntax or spelling errors. Electronically signed by: Umair Alexander M.D. 10/17/2018 11:42 AM ECG Data Attestation: I personally reviewed and interpreted this ECG as follows: Indication: chest pain Rate (beats per minute): 50 Rhythm: sinus bradycardia Findings: no PAC, no PVC, no ST elevation and no ectopy Blood Pressure Blood Pressure Findings: Elevated blood pressure Blood Pressure Disposition: further management by hospitalist JACOB Whipple This is a 63-year-old male who presents to the emergency department from Dr. Tang's office. Dr. Tang called me to let me know that the patient was coming. The patient has a history of CAD and a right coronary artery stent in 2010. He was seen on the of this month in the emergency department and diagnosed with Lyme disease and started on doxycycline at that time. The patient had an EKG while here which revealed an incomplete right bundle branch block and left anterior fascicular block. He saw Dr. Tang as an outpatient today for routine follow-up of his abnormal EKG. The patient reports that he had been having chest pressure and shortness of breath as well as some dizziness despite being on doxycycline. EKG in the office revealed some new lateral T wave inversions, per Dr. Tang. He was being sent over for evaluation of possible Lyme myocarditis or possibly ischemia. Dr. Chandra was notified. Upon the patient's arrival here, I ordered an echocardiogram. The echocardiogram was reviewed by Dr. Chandra and there was no evidence of pericardial effusion or other abnormality. Dr. Tang feels the patient needs to be admitted on IV Rocephin and have an ID consult and possibly be ruled out for ischemia due to the lateral EKG changes at the office. The patient's twelve-lead EKG here today reveals a sinus bradycardia at a rate of 50 without acute ischemic changes. There is an incomplete right bundle branch block and left anterior fascicular block. The patient CBC and chemistry panel was normal. Troponin was negative. Chest x-ray was negative for acute disease. The patient was given IV Rocephin here. I spoke with the hospitalist, who will see the patient for further inpat ient evaluation and care. Impression & Plan Acute Lyme disease, Chest pain, Acute dyspnea Discharge Plan Visit Data Chief Complaint: Headache Stated Complaint: HEADACHES, DIZZYNESS, SKIN STINGING ED Provider: Chevy Barajas Discharge Problem: Acute Lyme disease, Chest pain, Acute dyspnea Forms Stand Alone Forms: My [facility] Prescriptions Prescriptions: No Action losartan 50 mg Tablet 50 mg PO QAM RF: 0 atorvastatin 40 mg Tablet 40 mg PO QAM RF: 0 aspirin 81 mg Tablet,Delayed Release (Dr/Ec) 81 mg PO QAM RF: 0 levothyroxine 25 mcg Tablet 25 mcg PO QAM RF: 0 doxycycline hyclate 100 mg Tablet 100 mg PO QAM RF: 0 baclofen 5 mg Tablet 5 mg PO QAM RF: 0 Discharge Problem: Chest pain Qualifiers: Chest pain type: precordial pain Qualified Code(s): R07.2 - Precordial pain The scribe's documentation has been prepared under my direction and personally reviewed by me in its entirety. I confirm that the note above accurately r eflects all work, treatment, procedures, and medical decision making performed by me.
--- NOTE | 2018-10-17 15:35 | History & Physical Report ---
Date of Service October 17, 2018 Assessment & Plan (1) Acute Lyme disease: Pt is 63 y/o M with PMH CAD s/p 2 stents to RCA in 2010, HTN, HLD, depression, anxiety, GERD, renal cell carcinoma presented from [facility] office for work up for possible Lyme carditis. Patient with ER visit on 09/09 for rash which was consistent with erythema migrans to left groin, bilateral thighs and abdomen. Pt been feeling poorly since. Reported SOB, mid chest pressure, dizziness, intermittent FABIAN's. 09/25/18 Lyme test with 2 IgG positive Echo performed today: EF: 55-60%, no wall motion abnormalities, grade 2 diastolic dysfunction, no pericardial effusion -In ER given 1 GM Rocephin -Will give additional 1GM Rocephin to equal 1GM -2GM Rocephin daily -ID consult -Cardiology consult (2) Acute dyspnea: (3) CAD (coronary artery disease): History CAD s/p 2 stents to RCA in 2010 Recent lyme diagnosis C/O intermittent chest pressure, SOB recently occurs when lying supine in bed Echo performed today: EF: 55-60%, no wall motion abnormalities, grade 2 diastolic dysfunction, no pericardial effusion Initial troponin negative. EKG: sinus bradycardia, rate 51, incomplete RBBB, L anterior fascicular block, no acute R/O ACS. Risk factors: CAD, HTN, HLD, Tobacco use -Trend troponin -Continue aspirin, statin (4) HTN (hypertension): BP elevated in ER at 173/86 Pt anxious Will monitor and if no improvement consider adjusting meds or adding additional agent Continue amlodipine, losartan (5) Hyperlipemia: -Continue atorvastatin (6) Hypothyroidism: TSH: 1.8 -Continue levothyroxine (7) Anxiety: Hx anxiety and depression Not on any medications as has denied in past (8) Tobacco abuse: Smoking cessation encouraged -Nicotine patch DVT Prophylaxis -Lovenox Full code as discussed with pt Follows with Dr Foster for routine care Pt was seen and care coordinated with Dr Peace. See addendum History of Present Illness Chief Complaint: Referred from [facility] office for possible lyme carditis Primary Care Provider: Hernesto Foster MD Pt is 63 y/o M with PMH CAD s/p 2 stents to RCA in 2010, HTN, HLD, depression, anxiety, GERD, renal cell carcinoma presented to ER from [facility] office for work up for possible Lyme carditis. Patient with ER visit on 09/25/2018 for rash which was consistent with erythema migrans to left groin, bilateral thighs and abdomen. EKG at that time showed sinus bradycardia, incomplete RBBB, left anterior fascicular block, poor R wave progression anterior leads, T wave flattening and T wave inversion lateral leads. Had Lyme testing drawn at that time and patient was started on doxycycline. Patient reports his been feeling i ll for the past 2 weeks. Reports his been feeling cold. Also has been having intermittent mid anterior chest pressure that is nonradiating with associated shortness of breath. Patient reports the symptoms typically start when lying in bed and can last for approximately 30 minutes and self resolve. Patient reports has been dizzy for the last 4 days which also seems to occur when lying in bed. Describes dizziness as lightheaded sensation however today he feels lightheaded with sitting up and standing. Denies any spinning type sensation. He states after the lightheadedness he has an episode of diarrhea. Has been feeling nauseated since yesterday, no vomiting. Patient states has had good appetite and has been eating and drinking well. States yesterday started with generalized headache which has been intermittent over the past day. Denies vision changes. Reports that he has been sweating a lot when he is in the sun, unsure how long that has been going on and unsure if worse on the doxycycline. He admits to being in sun while on Doxycycline but reports he at least was wearing a t-shirt. Patient denied any paresthesias until today while in ER he reported some "possible" paresthesia sensation to left arm. Patient admits to increased anxiety recently. He reports he is taking care of his elderly mother. Also complains of insomnia and is upset as PCP suggested starting antianxiety medications, and patient reports he wanted sleep medication. Denies fever, syncope, vision changes, neck pain, neck stiffness, orthopnea, palpitations, cough, sore throat, choking, otalgia, rhinorrhea, abdominal pain, extremity weakness, extremity edema, urinary symptoms. Pt had echo performed today: EF: 55-60%, no wall motion abnormalities, grade 2 diastolic dysfunction, no pericardial effusion Allergies Allergy/AdvReac Type Severity Reaction Status Date / Time atenolol Allergy Mild Verified 04/27/17 11:19 atorvastatin Allergy Mild Verified 01/12/15 14:30 lisinopril Allergy Mild Verified 04/27/17 11:19 Home Medications Home Medications Medication Instructions Recorded Confirmed Type amlodipine 5 mg PO DAILY 10/17/18 10/17/18 History aspirin 81 mg PO QAM 10/17/18 10/17/18 History atorvastatin 80 mg PO PM 10/17/18 10/17/18 History doxycycline hyclate 100 mg PO QAM 10/17/18 10/17/18 History levothyroxine 25 mcg PO QAM 10/17/18 10/17/18 History losartan 50 mg PO QAM 10/17/18 10/17/18 History Past Med/Surg History Medical History Tobacco abuse (Chronic) Hypothyroidism (Chronic) Renal cell carcinoma (Chronic) CAD (coronary artery disease) (Chronic) GERD (gastroesophageal reflux disease) (Chronic) Depression (Chronic) Anxiety (Chronic) Hypertension (Chronic) Hyperlipemia (Chronic) Hypertension Surgical History History of cardiac cath (Chronic) 2 stents to RCA in 2010, [place] Family History Other Hypothyroidism Social History Preferred Language: Belarusian Communication Ability: Effective Tennis Professional Required: No Beliefs That Will Affect Care: None Current Living Situation: Family Current Living Situation Comment: lives with and cares for his mom Other Information That Helps Us Care for You: No Feels Safe at Home: Yes Safety Concerns: Feels Safe At This Time Smoking Status: Current every day smoker Tobacco Type: cigarettes ; Cigarettes Per Day: 20 ; Do You Dip or Chew Tobacco: No ; Hx Alcohol Use: No Hx Substance Use: No Review of Systems Review of Systems: All systems reviewed & are unremarkable except as noted in HPI & below Physical Exam Physical Exam: General: no acute distress, +anxious, WDWN Head: normocephalic, atraumatic Eyes: PERRL, EOM's intact, conjunctiva non-injected, anicteric ENT: normal inspection external ears, nose, mucous membranes moist Neck: supple, trachea midline, non-tender, ROM intact Lungs: clear, no respiratory distress, no wheezing/rhonchi/rales CV: rate 56, regular, no murmur, no JVD, no pretibial edema Abd: normal BS, soft, non-tender Ext: no cyanosis, no calf tenderness Neuro: A&O x 3, no focal deficits noted, anxious affect Skin: warm, dry, faint area erythema to left upper leg, +andrews skin noted Results & Data Vital Signs (Past 12 Hours) Vital Signs Temp Pulse Pulse Resp BP BP Pulse Ox 10/17/18 14:00 54 L 16 181/87 H 96 10/17/18 12:05 72 18 178/93 H 100 10/17/18 11:28 36.9 C 58 L 20 173/86 H 99 Laboratory Results Short CBC 10/17/18 Range/Units 12:02 WBC 7.41 (4.8-10.8) K/uL Hgb 15.7 (14.0-18.0) g/dL Hct 42.9 (42-52) % Plt Count 234 (130-400) K/uL BMP 10/17/18 12:02 Sodium 132 L Potassium 4.1 Chloride 100 Carbon Dioxide 27 BUN 13 Creatinine 0.94 Glucose 95 Calcium 8.6 Cardiac Enzymes 10/17/18 Range/Units 12:02 Total Creatine Kinase 145 (39-308) U/L CK-MB (CK-2) 1.8 (0.5-3.6) ng/ml Troponin I < 0.015 (0-0.045) ng/ml Liver Function 10/17/18 Range/Units 12:02 Total Bilirubin 0.5 (0.2-1) mg/dl AST 27 (15-37) U/L ALT 41 (12-78) U/L Alkaline Phosphatase 96 (45-117) U/L Albumin 3.4 (3.4-5.0) gm/dl Diagnostic Findings CXR: IMPRESSION: No acute process. ECG Rate (beats per minute): 51 Rhythm: sinus bradycardia Findings: + LAFB and + RBBB (incomplete RBBB) Code Status & VTE Plan VTE Prophylaxis Plan VTE Prophylaxis will be ordered: Yes Supervising Physician Co-Signing Physician Notes HISTORY: Record reviewed. Patient interviewed and examined. Care coordinated with Rose Marie Pan PA-C. Please refer to her documentation for patient's history. Briefly, 63-year-old male recently diagnosed with Lyme disease and treated with course of doxycycline. Seen in clinic today with malaise and intermittent chest pain. Refer to ED for further evaluation and management. EXAM: General- no distress Lungs- clear to auscultation; no respiratory distress Cardiovascular- RRR; no murmur; no gallop; no JVD; no pretibial edema Abdomen- + bowel sounds, soft, nontender Extremities- no cyanosis; no calf tenderness Neuro- alert, oriented Skin- warm & dry DATA: Hemoglobin 15.7, white count 7410, platelet count 234,000. Sodium 132, potassium 4.1, chloride 100, CO2 27, BUN 13, creatinine 0.94, glucose 95. LFTs normal. Serum troponin less than 0.015. Other lab studies as noted. Chest x-ray reviewed and demonstrated normal cardiac silhouette, no infiltrates, effusions, CHF. EKG performed at 1135 reviewed and demonstrated sinus bradycardia at 50 / minute, incomplete right bundle branch block, left anterior fascicular block, biphasic T waves in lateral precordial leads. ASSESSMENT AND PLAN: Chest pain. Recently diagnosed Lyme disease, treated with course of doxycycline. Consider Lyme myocarditis. Consider ischemic heart disease. Admit to Telemetry Unit. Consult Cardiology. Consult ID. Please refer to MANUELITO Hdez's documentation for discussion of other issues.
[2018-10-17] MEDS ORDERED: ACETAMINOPHEN 325 MG TAB PO PRN (16:23)
[2018-10-17] MEDS ORDERED: NITROGLYCERIN SL 0.4 MG/TAB TAB SL PRN (16:23)
[2018-10-17] MEDS ORDERED: ZOLPIDEM TARTRATE 5 MG TAB PO PRN (16:23)
[2018-10-17] MEDS ORDERED: cefTRIAXone SODIUM 1,000 MG/50 ML BAG IV ONE (16:30)
[2018-10-17] MEDS: ENOXAPARIN INJ 40 MG/0.4 ML SYR SQ SCH ×2 (17:39→18:19)
[2018-10-17] MEDS: NICOTINE 21 MG/24 HR TDSY TD SCH (17:39)
[2018-10-17] MEDS ORDERED: ATORVASTATIN 40 MG TAB PO SCH (21:00)
[2018-10-18] MEDS ORDERED: LEVOTHYROXINE SODIUM 25 MCG TABLET PO SCH (06:30)
[2018-10-18 07:15] LABS: Hemoglobin 15.5 g/dL (14.0-18.0); Mean Corpuscular Hgb Conc 35.2 g/dL (32-36); Mean Corpuscular Volume 86.6 fL (80-100); Platelet Count 250 K/uL (130-400); RDW Coefficient of Variation 13.7 % (11.5-14.5); RDW Standard Deviation 43.4 fL (36.4-46.3); Red Blood Count 5.08 M/uL (4.7-6.1); White Blood Count 7.33 K/uL (4.8-10.8)
[2018-10-18 07:47] LABS: BUN Creatinine Ratio 15.2 (10-20); Calcium 9.1 mg/dl (8.5-10.1); Creatinine Clr Calc Pharmacy 69.4 ml/min; Est GFR (African American) 80.9; Est GFR (Non-African American) 69.8; Potassium 4.2 mmol/L (3.5-5.1)
--- NOTE | 2018-10-18 08:31 | Hospitalist Progress Note ---
Date of Service October 18, 2018 Assessment & Plan (1) Acute Lyme disease: Pt is 63 y/o M with PMH CAD s/p 2 stents to RCA in 2010, HTN, HLD, depression, anxiety, GERD, renal cell carcinoma presented from [employer] office for work up for possible Lyme carditis. Patient with ER visit on 09/25/2018 for rash which was consistent with erythema migrans to left groin, bilateral thighs and abdomen. Pt been feeling poorly since 2 weeks with multiple complaints - SOB, mid chest pressure, dizziness, intermittent FABIAN's. LYME'S CARDITIS RULED OUT -09/25/18 Lyme test with IgG and IgM positive -Echo on 10/18/18: EF: 55-60%, no wall motion abnormalities, grade 2 diastolic dysfunction, no pericardial effusion -Received IM Rocephin in ED. Discontinue and continue with Doxycycline to complete 28 days course (started on 09/25/18). -ID consulted -Cardiology consulted (2) Chest pain: (3) Acute dyspnea: -CXR: No acute changes -Not hypoxic -Vague symptoms. Contributing factors: Anxiety, Depression -S/P Stress Echo- negative for acute ischemia (4) CAD (coronary artery disease): History CAD s/p 2 stents to RCA in 2010 -C/O intermittent chest pressure, SOB recently occurs when lying supine in bed, not exertional. Less likely to be cardiac -Echo on admission: EF: 55-60%, no wall motion abnormalities, grade 2 diastolic dysfunction, no pericardial effusion -EKG: sinus bradycardia, rate 51, incomplete RBBB, L anterior fascicular block, no acute R/O ACS. Risk factors: CAD, HTN, HLD, Tobacco use -Trend troponin -Continue aspirin, statin (5) HTN (hypertension): -Continue amlodipine, losartan (6) Hyperlipemia: -Continue atorvastatin (7) Hypothyroidism: TSH: 1.8 -Continue levothyroxine (8) Anxiety: Hx anxiety and depression Not on any antianxiety medications. Patient wants to be on medications. Was following up with psychiatry but states was unable to afford the gas for psychiatrist visits 2-3 times a week. -We will consult psychiatry as has significant anxiety, likely contributing to current symptoms. (9) Tobacco abuse: Smoking cessation encouraged -Nicotine patch DVT Prophylaxis -Lovenox subcutaneous Full code as discussed with pt Disposition Likely discharge in a.m. Expected discharge home when stable Subjective Patient is very anxious and demanding antianxiety medication. States that he has been asking his PCP to give this for months. Was following up with psychiatrist, but could not afford the gas to see them 3 times a week. Still has multiple vague complaints-chest pain, dizziness, lightheadedness. Not on oxygen Physical Exam Physical Exam: GENERAL- AAOX3, VERY ANXIOUS + LUNGS- Air entry bilaterally equal. No rales, rhonchi, crackles, wheezes heard. HEART- Regular rate and rhythm. No murmurs ABDOMEN- Soft, non tender, non distended, Bowel sounds heard. EXTREMITIES- Good peripheral pulses, no edema NEUROMUSCULAR- AAOX3, Grossly no focal deficits SKIN- No rash Results & Data Vital Signs (Past 12 Hours) Vital Signs Temp Pulse Pulse Resp BP Pulse Ox 10/18/18 06:22 36.6 C 47 L 19 166/80 H 98 10/18/18 04:42 36.9 C 47 L 19 136/79 96 10/18/18 00:32 46 L 10/17/18 23:10 36.6 C 47 L 18 136/71 94 (1) Chest pain Chest pain type: precordial pain Qualified Code(s): R07.2 - Precordial pain
[2018-10-18] MEDS ORDERED: ONDANSETRON INJ 2 MG/ML 2 ML VIAL IV PRN (08:32)
[2018-10-18] MEDS: NICOTINE 21 MG/24 HR TDSY TD SCH (08:40)
[2018-10-18] MEDS ORDERED: LOSARTAN POTASSIUM 50 MG TAB PO SCH (09:00)
[2018-10-18] MEDS ORDERED: ASPIRIN 81 MG ECTAB PO SCH (09:00)
[2018-10-18] MEDS ORDERED: AMLODIPINE BESYLATE 5 MG TAB PO SCH (09:00)
[2018-10-18] MEDS ORDERED: DOBUTamine HCL 12.5 MG/ML 20 ML VIAL IV ONE (09:34)
[2018-10-18] MEDS ORDERED: METOPROLOL TARTRATE 1 MG/ML VIAL IV ONE (09:35)
[2018-10-18] MEDS ORDERED: ATROPINE SULFATE 0.1 MG/ML 10ML SYR IV ONE ×2 (09:35→10:29)
[2018-10-18] MEDS ORDERED: cefTRIAXone SODIUM 2,000 MG in DEXTROSE 5% 50 ML IV SCH (12:00)
--- NOTE | 2018-10-18 13:28 | Consultation Report ---
DATE OF CONSULTATION: 10/18/2018 INPATIENT CARDIOLOGY CONSULTATION CONSULTATION REQUESTED BY: Dr. Peace. REASON FOR CONSULTATION: Chest discomfort with EKG changes. HISTORY OF PRESENT ILLNESS: Mr. Vera is a very pleasant 63-year-old gentleman who is followed up with numerous cardiologists through our [facility] practice including myself and Dr. Sim. He presented for an acute evaluation with Dr. Russo on 10/17/2018 after his primary care physician recommended cardiology assessment for EKG changes. At the time of evaluation with Dr. Russo, the patient was complaining of not feeling well ever since being diagnosed with Lyme disease. He states he has significant rash, overall sensation of feeling cold and chest discomfort. He describes as a substernal pressure that did not radiate, which was different than the pain he had prior to his previous stents. He states overall he just feels horrible. Again, dynamic EKG changes were observed and he was transferred to [facility]. A stat echocardiogram was done upon arrival which was unremarkable after concern for Lyme carditis was raised as well as possible active ischemia. The patient was admitted to telemetry overnight. Troponins were negative; however, he continued to have discomfort off and on. Currently, he is having chest discomfort prior to the start of the dobutamine stress echocardiogram; however, his resting images remain normal. PAST SURGICAL HISTORY: PCI x2 to the RCA in 2010 at [facility]. MEDICAL ILLNESSES: 1. Coronary artery disease. 2. Active lung disease. 3. History of renal cell carcinoma. 4. Anxiety. 5. Dyslipidemia. 6. Hypothyroidism. 7. Hypertension. 8. Ongoing tobacco abuse. 9. Depression. FAMILY HISTORY: Denies any premature coronary artery disease or sudden cardiac . SOCIAL HISTORY: The patient is a lifelong smoker and continues to smoke approximately a pack and half a day. Denies any alcohol or recreational drug use. He is not . He is currently unemployed. REVIEW OF SYSTEMS: As per HPI, all other review of systems reviewed and negative at this time. ALLERGIES: No known drug allergies. MEDICATIONS AN OUTPATIENT: 1. Aspirin 81 mg daily. 2. Losartan 50 mg daily. 3. Atorvastatin 80 mg daily. 4. Amlodipine 5 mg daily. 5. Doxycycline 100 mg b.i.d. 6. Levoxyl. PHYSICAL EXAMINATION: VITAL SIGNS: Temperature 36.5, pulse 51, respiratory rate 12, blood pressure 148/85. GENERAL: Awake, alert, oriented x3, mild anxiety. HEENT: Normocephalic, atraumatic. Pupils equal, round, reactive to light and accommodation. Extraocular muscles intact. Anicteric sclerae. Moist mucous membranes. NECK: No JVD, no bruit. CARDIOVASCULAR: Regular. Positive S4. Normal S1 and S2. No S3. No murmurs or rubs. PULMONARY: Clear to auscultation bilaterally. No rales, rhonchi, or wheezing. ABDOMEN: Bowel sounds x4, soft. No rebound, guarding, tenderness. No organomegaly. EXTREMITIES: No clubbing, cyanosis or edema. +2 pedal pulses bilaterally. SKIN: Warm and dry. TEST RESULTS: A 12-lead EKG performed in the Emergency Department independently reviewed at this time shows sinus bradycardia, 51 beats per minute with an underlying incomplete right bundle-branch block, left anterior fascicular block, and nonspecific lateral ST-T wave changes. These are new compared to the most recent EKG; however, similar to EKGs in the distant past. A 2D echocardiogram performed 10/17/2018 was read as normal LV chamber size with mild concentric LVH, normal LV systolic function, EF 55-60%, no segmental left ventricular wall motion abnormalities are noted, grade 2 diastolic dysfunction, no significant valvular pathology, no pericardial effusion. Dobutamine stress echocardiogram performed 10/18/2018 was read as nonischemic dobutamine stress echocardiogram, no arrhythmias, normal heart rate and BP response to dobutamine. The patient had chest discomfort prior to the start of the study, resolved during the study. No chest pain or target heart rate. IMPRESSION: 1. Chest pain. 2. Active Lyme disease infection. 3. History of coronary artery disease. 4. Diastolic dysfunction with normal LV systolic function. 5. Anxiety. RECOMMENDATIONS: It was my pleasure to see Mr. Vera in consultation today. From a cardiac standpoint, the patient was counseled given the fact that his resting echocardiogram shows no significant pericardial disease, pericardial changes or pericardial effusion and no new wall motion abnormalities along the fact that his dobutamine stress echocardiogram was nonischemic, though I do not see any cardiac component to his chest discomfort. I am not quite sure how to explain his EKG changes, but again his stress echocardiogram was nonischemic, so no further testing is necessary at this time. He was counseled on the possibility of his chest pain related to anxiety and he greatly agrees with this and would like to seek further treatment. Otherwise, he will continue treatment for his Lyme disease at this time, but again no further cardiac testing or intervention is necessary. He should be maintained on his outpatient cardiac regimen.
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
--- NOTE | 2018-10-18 15:23 | Discharge Summary ---
Date of Service October 18, 2018 Admission HPI Per Admitting Provider Pt is 63 y/o M with PMH CAD s/p 2 stents to RCA in 2010, HTN, HLD, depression, anxiety, GERD, renal cell carcinoma presented to ER from [facility] for work up for possible Lyme carditis. Patient with ER visit on 09/25/2018 for rash which was consistent with erythema migrans to left groin, bilateral thighs and abdomen. EKG at that time showed sinus bradycardia, incomplete RBBB, left anterior fascicular block, poor R wave progression anterior leads, T wave flattening and T wave inversion lateral leads. Had Lyme testing drawn at that time and patient was started on doxycycline. Patient reports his been feeling ill for the past 2 weeks. Reports his been feeling cold. Also has been having intermittent mid anterior chest pressure that is nonradiating with associated shortness of breath. Patient reports the symptoms typically start when lying in bed and can last for approximately 30 minutes and self resolve. Patient reports has been dizzy for the last 4 days which also seems to occur when lying in bed. Describes dizziness as lightheaded sensation however today he feels lightheaded with sitting up and standing. Denies any spinning type sensation. He states after the lightheadedness he has an episode of diarrhea. Has been feeling nauseated since yesterday, no vomiting. Patient states has had good appetite and has been eating and drinking well. States yesterday started with generalize d headache which has been intermittent over the past day. Denies vision changes. Reports that he has been sweating a lot when he is in the sun, unsure how long that has been going on and unsure if worse on the doxycycline. He admits to being in sun while on Doxycycline but reports he at least was wearing a t-shirt. Patient denied any paresthesias until today while in ER he reported some "possible" paresthesia sensation to left arm. Patient admits to increased anxiety recently. He reports he is taking care of his elderly mother. Also complains of insomnia and is upset as PCP suggested starting antianxiety medications, and patient reports he wanted sleep medication. Denies fever, syncope, vision changes, neck pain, neck stiffness, orthopnea, palpitations, cough, sore throat, choking, otalgia, rhinorrhea, abdominal pain, extremity weakness, extremity edema, urinary symptoms. Pt had echo performed today: EF: 55-60%, no wall motion abnormalities, grade 2 diastolic dysfunction, no pericardial effusion Principal Diagnosis 1. Chest pain, Lyme's carditis/acute ischemia ruled out 2. Generalized anxiety disorder Secondary diagnoses on discharge 1. Hypertension 2. Coronary artery disease 3. Hyperlipidemia 4. Hypothyroidism 5. Tobacco abuse disorder Discharge Data Allergies Allergy/AdvReac Type Severity Reaction Status Date / Time atenolol Allergy Mild Verified 04/27/17 11:19 atorvastatin Allergy Mild Verified 01/12/15 14:30 lisinopril Allergy Mild Verified 04/27/17 11:19 Consultations 10/17/18 14:15 ED Decision to Admit Stat 10/17/18 16:23 Consult Infectious Diseases Routine 10/17/18 18:11 Consult Cardiology Routine 10/18/18 13:12 Consult Psychiatry Routine Hospital Course (1) Chest pain: Pt is 63 y/o M with PMH CAD s/p 2 stents to RCA in 2010, HTN, HLD, depression, anxiety, GERD, renal cell carcinoma presented from [facility] for work up for possible Lyme carditis given chest pain, EKG changes. Patient with ER visit on 09/25/2018 for rash which was consistent with erythema migrans to left groin, bilateral thighs and abdomen. Pt been feeling poorly since 2 weeks with multiple complaints - SOB, mid chest pressure, dizziness, intermittent FABIAN's. LYME'S CARDITIS/ ACUTE ISCHEMIA RULED OUT -09/25/18 Lyme test with IgG and IgM positive. Was started on doxycycline p.o. Per d/w ID, as he responded to initial treatment with doxycycline with resolution of multiple erythema migrans ( which could be a sign of early disseminated Lyme's ) , unlikely that his current symptoms are secondary to Lyme's disease or carditis. -Echo on 10/18/18: EF: 55-60%, no wall motion abnormalities, grade 2 diastolic dysfunction, no pericardial effusion--> No signs of Lymes carditis -S/P Stress Echo today- Negative for acute ischemia -Received IM Rocephin in ED. Discontinue Rocephin. -Appreciate ID inputs -Appreciate cardiology inputs (2) Acute Lyme disease: Patient was diagnosed with Lyme's disease with IgG, IgM antibodies positive on 09/25/2018 when he presented with multiple symptoms including erythema migrans at multiple sites. He was started on doxycycline then. Per discussion with infectious disease likely he had early disseminated Lyme's as he presented with multiple sites erythema migrans. His rash resolved within few days of doxycycline treatment. Therefore unlikely that current symptoms are secondary to acute Lyme's disease. Recommends total of 14 days of treatment with doxycycline which she has already completed. No more antibiotics recommended. Was started on empiric IV Rocephin on admission which has been discontinued. (3) Anxiety: Hx anxiety and depression Not on any antianxiety medications. Patient wants to be on medications. Was following up with psychiatry but states was unable to afford the gas for psychiatrist visits 2-3 times a week. -Consulted psychiatry as has significant anxiety, likely contributing to current symptoms. Per d/w psychiatry, patient does have a significant psychiatry history including histrionic traits as per medical records. In the past he had denied any medications nor adjustments in doses of medications for the same. However, willing to go for a trial now. Per discussion with psychiatry, initially plan was to give him first dose of hydroxyzine 50 mg at bedtime today and then every 4 hours as needed. Patient is not willing to stay anymore in the hospital and wants to be dischargedin this case we will start him on hydroxyzine 25 mg 3 times daily as needed and then he can follow-up with his primary care physician. He does not wish to follow-up with psychiatry (4) CAD (coronary artery disease): History CAD s/p 2 stents to RCA in 2010 -C/O intermittent chest pressure, SOB recently occurs when lying supine in bed, not exertional. Less likely to be cardiac -Echo on admission: EF: 55-60%, no wall motion abnormalities, grade 2 diastolic dysfunction, no pericardial effusion -EKG: sinus bradycardia, rate 51, incomplete RBBB, L anterior fascicular block, no acute R/O ACS. Risk factors: CAD, HTN, HLD, Tobacco use -Trend troponin -Continue aspirin, statin (5) HTN (hypertension): -Continue amlodipine, losartan (6) Hyperlipemia: -Continue atorvastatin (7) Hypothyroidism: TSH: 1.8 -Continue levothyroxine (8) Tobacco abuse: Smoking cessation encouraged -Nicotine patch DVT Prophylaxis -Lovenox subcutaneous Full code as discussed with pt Disposition Offered to keep him in the hospital for 1 more day to start Hydroxyzine as per discussion with psychiatry. However, patient wants to be discharged home now. Discussed with psychiatry and okay to do so. We will send him on lower dose of hydroxyzine with follow-up with PCP Total Time Total Time Spent Total Time Spent (In Minutes): 35 minutes Discharge Plan Discharge Items Patient Disposition: Home - Self-Care Reason For Visit: LYME Discharge Diagnosis: Chest pain, Lyme's carditis/acute ischemia ruled out Discharge Goals: Decrease discomfort Activity: Resume your previous activity Non-emergency contact: Primary Care Provider Call non-emergency contact if: your symptoms worsen Follow-up/Referrals: Hernesto Foster MD [Primary Care Provider] - 10/24/18 11:15 am Diet: Regular Addtl Provider Instructions: You were admitted to the hospital for chest pain, Lyme's carditis/acute ischemia ruled out. Medication changes : 1. No more Doxycycline needed. You have completed course for Lymes disease 2. New medication : Hydroxyzine 25 mg PO three times a day as needed for anxiety QUIT : Smoking Prescriptions: New hydroxyzine HCl 25 mg tablet 25 mg PO Q8H PRN (Reason: anxiety) Qty: 20 RF: 0 Continued losartan 50 mg Tablet 50 mg PO QAM RF: 0 aspirin 81 mg Tablet,Delayed Release (Dr/Ec) 81 mg PO QAM RF: 0 levothyroxine 25 mcg Tablet 25 mcg PO QAM RF: 0 amlodipine 5 mg tablet 5 mg PO DAILY RF: 0 atorvastatin 80 mg tablet 80 mg PO PM RF: 0 Discontinued doxycycline hyclate 100 mg Tablet 100 mg PO QAM RF: 0 Stand-Alone Forms: [facility] Discharge Orders: Discharge Order (Routine); Ordered 10/18/18 Ordered By: Lesvia Stiles Admission Data Admit Date/Time: 10/17/18 15:13 Attending Provider: Lesvia Stiles Admit Provider: Joao Peace Primary Care Provider: Hernesto Foster Other Providers: Yuri Lopez ; Darin Chandra ; Joao Peace ; Rosalinda Hansen Service: Telemetry Medical
--- NOTE | 2018-10-18 16:39 | Infectious Disease Consult ---
Date of Consultation October 18, 2018 Assessment & Plan (1) Acute Lyme disease: Patient with recently diagnosed early disseminated Lyme disease with multiple skin lesions, treated appropriately with doxycycline therapy with improvement. Now with new onset of symptoms, unlikely from Lyme disease given appropriate treatment and interval between treatment and symptom onset. More likely patient having anxiety reaction or possibly gastroesophageal side effects from doxycycline therapy. Regardless, would recommend discontinuation of doxycycline as has received adequate therapy for early Lyme disease. Would think that IV ceftriaxone can be discontinued as well. Case discussed with hospitalist. History of Present Illness Reason for Consultation: Lyme Attending Physician: Lesvia Stiles History of Present Illness 63-year-old male with history of renal cell carcinoma, gastroesophageal reflux, coronary artery disease, depression, who was seen in mid September in the emergency room with acute onset of multiple erythematous lesions bull's-eye configuration, multiple areas of his body after known tick bite. Was started on treatment for Lyme disease, Lyme serology positive for IgM antibodies with several bands on IgG assay as well, treated with doxycycline with improvement in his rash. Then after 2 weeks, developed substernal chest pain with epigastric pain, admitted to the hospital for possible Lyme carditis and started empirically on ceftriaxone. Patient has been found to have no evidence of ischemic heart disease, and no other Wanda. Still complaining of epigastric abdominal pain. No neurologic symptoms, but remains quite anxious. Allergies Allergy/AdvReac Type Severity Reaction Status Date / Time atenolol Allergy Mild Verified 04/27/17 11:19 atorvastatin Allergy Mild Verified 01/12/15 14:30 lisinopril Allergy Mild Verified 04/27/17 11:19 Home Medications Home Medications Medication Instructions Recorded Confirmed Type amlodipine 5 mg PO DAILY 10/17/18 10/17/18 History aspirin 81 mg PO QAM 10/17/18 10/17/18 History atorvastatin 80 mg PO PM 10/17/18 10/17/18 History levothyroxine 25 mcg PO QAM 10/17/18 10/17/18 History losartan 50 mg PO QAM 10/17/18 10/17/18 History hydroxyzine HCl 25 mg PO Q8H PRN #20 tab 10/18/18 Rx Patient History Medical History Tobacco abuse (Chronic) Hypothyroidism (Chronic) Renal cell carcinoma (Chronic) CAD (coronary artery disease) (Chronic) GERD (gastroesophageal reflux disease) (Chronic) Depression (Chronic) Anxiety (Chronic) Hypertension (Chronic) Hyperlipemia (Chronic) Hypertension Surgical History History of cardiac cath (Chronic) 2 stents to RCA in 2010, [place] Family History Other Hypothyroidism Social History Preferred Language: Turkmen Communication Ability: Effective Cafeteria Aide Required: No Beliefs That Will Affect Care: None Current Living Situation: Family Current Living Situation Comment: lives with and cares for his mom Other Information That Helps Us Care for You: No Feels Safe at Home: Yes Safety Concerns: Feels Safe At This Time Smoking Status: Current every day smoker Tobacco Type: cigarettes ; Cigarettes Per Day: 20 ; Do You Dip or Chew Tobacco: No ; Hx Alcohol Use: No Hx Substance Use: No Review of Systems Review of Systems: All systems reviewed & are unremarkable except as noted in HPI & below Physical Exam Constitutional: WD/WN, vitals as above comfortable; no acute distress Eyes: PERRL, conjunctivae normal, anicteric sclerae ENMT: external ear and nose normal, oropharynx normal Neck: trachea midline, no thyromegaly neck nontender Respiratory: normal respiratory effort, lungs clear to auscultation normal percussion; does not use accessory muscles Cardiovascular: Rate/Rhythm: regular rate and regular rhythm Heart Sounds: normal S1 and normal S2; no gallop, no murmur and no cardiac rub Vessels: normal peripheral pulses; no JVD Gastrointestinal (Abdomen): normal bowel sounds, soft, nontender, no hepatosplenomegaly Musculoskeletal: no cyanosis or clubbing, extremities motor strength 5/5 Spine: thoracic spine normal to inspection and lumbar spine normal to inspectio n; no cervical spinal tenderness Skin: no rashes, warm and dry normal turgor; no lesions Neurologic: patellar DTR's 2+ bilat, sensation intact no focal motor deficits Psychiatric: A+Ox3, euthymic affect Orientation: cooperative Lymphatic: no cervical or axillary lymphadenopathy no inguinal lymphadenopathy Results & Data Vital Signs (Past 12 Hours) Vital Signs Temp Pulse Pulse Resp BP Pulse Ox 10/18/18 16:00 49 L 10/18/18 15:43 36.5 C 43 L 18 123/73 95 10/18/18 14:54 36.5 C 43 L 18 123/73 95 10/18/18 11:07 36.5 C 51 L 18 148/85 H 95 10/18/18 08:20 51 L 10/18/18 06:22 36.6 C 47 L 19 166/80 H 98 10/18/18 04:42 36.9 C 47 L 19 136/79 96 Laboratory Results Short CBC 10/18/18 Range/Units 06:32 WBC 7.33 (4.8-10.8) K/uL Hgb 15.5 (14.0-18.0) g/dL Hct 44.0 (42-52) % Plt Count 250 (130-400) K/uL BMP 10/18/18 06:32 Sodium 134 L Potassium 4.2 Chloride 102 Carbon Dioxide 28 BUN 17 Creatinine 1.11 Glucose 90 Calcium 9.1 Cardiac Enzymes 10/17/18 10/18/18 Range/Units 17:50 00:21 Troponin I < 0.015 < 0.015 (0-0.045) ng/ml Diagnostic Findings XR chest 1V portable HISTORY: 63 years-old Male Chest Pain acute atypical chest pain COMPARISON: Chest radiograph 09/25/2018 TECHNIQUE: Portable AP view of the chest FINDINGS: Cardiomediastinal and hilar silhouettes are unchanged. No pneumothorax, pleural effusion, focal airspace consolidation or overt pulmonary edema. Bones of the chest appear grossly intact. IMPRESSION: No acute process. The above report was generated using voice recognition software. It may contain grammatical, syntax or spelling errors. Electronically signed by: Umair Alexander M.D. 10/17/2018 11:42 AM Dictated: 10/17/18 1141 Transcribed: 10/17/18 1141 PG Care Time/CCT Total # of Minutes Spent Total Time Spent with Patient: Total time spent is greater than 50% in coordination of care (as documented) at patient's floor/unit and/or counseling patient:
== END 2018-10-18 17:15 | disposition home or self-care (01) | DRG 869 ==
LOC: ED 11:25 → 2W 15:13